=== PATIENT | male | born 1975 | race Caucasian/White ===

== ENCOUNTER 2016-07-12 15:46 | Emergency (ER) | payer SELFPAY ==
--- NOTE | 2016-07-12 16:48 | RAD ---
CHEST - 2 VIEWS COMPARISON: None. HISTORY: Cough for one month. Smoker. FINDINGS: Views: Frontal and lateral chest Lungs: Normal Heart and vessels: Normal Trachea and bronchi: Normal Mediastinum and bernardino: Normal Costophrenic sulci: Normal Chest wall and bones: Normal. Upper abdomen: Normal. IMPRESSION: Negative 2 view chest.
== END 2016-07-12 17:08 | disposition home or self-care (01) ==
LOC: ED 15:46
DX: J20.9 Acute bronchitis, unspecified (principal); F17.220 Nicotine dependence, chewing tobacco, uncomplicated